=== PATIENT | male | born 1985 | race Caucasian/White ===

== ENCOUNTER 2024-03-20 04:56 | Emergency (ER) | payer SELFPAY ==
[2024-03-20 04:59] VITALS: BP 118/80
[2024-03-20 05:11] VITALS: BMI 28.8
[2024-03-20 05:13] VITALS: BP 135/95
--- NOTE | 2024-03-20 05:30 | ED.GENMED ---
History of Present Illness
General
Chief Complaint: Chest Problem
Time Seen by Provider: 03/20/24 05:30
History of Present Illness
History of Present Illness:
HPI: 24hrs ago, had some chest tightness which was mild and constant (worse w/ sitting/laying). Some mildly swollen ankles yesterday which has resolved. 12hrs ago had some b/l UE discomfort which resolved. 10 hrs ago had more sharp pain. Ongoing
tightness overnight and now associated w/ wheeze/cough. He denies history of hyperlipidemia, denies diabetes, never smoked, has no significant family history, but states he has been told that he has had some elevated blood pressure readings but not
treated medically. He reports no shortness of breath.
EXAM:
GENERAL: Well appearing in no distress
HEENT: Moist oral mucosa
CARDIOVASCULAR: No murmurs, normal heart rate, regular rhythm, mild chest wall tenderness in the inferior left pectoral region, I hear no wheezing and I hear no friction rub
PULMONARY: No respiratory distress, breath sounds are clear and equal
ABDOMEN: Soft with no peritoneal signs, no tenderness
NEUROLOGIC: Excellent strength all extremities, no coordination deficits
PSYCHIATRIC: Appropriate mental status, normal insight and judgement
EXTREMITIES: Nontender, no edema, moves all extremities equally
SKIN: No rash, no lesions
TIME OF INITIAL ENCOUNTER: 5:15 AM
NUMBER AND COMPLEXITY OF PROBLEMS ADDRESSED AT THE ENCOUNTER
� Chronic conditions affecting care: Has had issues with palpitations in the past but otherwise fairly healthy
� Acute Exacerbation and/or Progression of Chronic Illness: This is an acute problem
� Differential Diagnosis includes: Noncardiac chest pain, costochondritis, ACS, viral syndrome
AMOUNT AND/OR COMPLEXITY OF DATA TO BE REVIEWED AND ANALYZED
� I performed an independent evaluation of and my interpretation is:
EKG: Sinus 74, normal axis, no acute ST abnormality
CT:
X-rays:
Laboratory Studies: White count is normal at 6.7, hemoglobin normal, chemistries unremarkable, COVID-negative
Other:
� Review of other/old records: No old records available for review in [facility]
� Clinical information was obtained by an independent historian: None needed
� Prescriptions/Medications Considered but not given:
� Further testing considered but not performed: Considered x-ray however the patient's breath sounds are perfectly clear and there has been no coughing while in the ED.
RISK OF COMPLICATIONS AND/OR MORBIDITY OR MORTALITY OF PATIENT MANAGEMENT
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
� Discussion with other providers:
� Escalation of care including admission/observation vs risk of discharge considered: The patient's EKG is unremarkable. He has no significant cardiovascular risk factors. Troponin negative. Highly doubt ACS given normal
troponin and normal EKG with 24 hours of symptoms. I reassessed patient at 6:14 AM and the patient appears very comfortable. Suspect noncardiac etiology of patient's symptoms.
Phy Exam
Physical Exam
Physical Exam:
See HPI
Course
Orders/Labs/Results
Orders:
Orders
03/20/24 05:02
Electrocardiogram (*1) Urgent
Reason for Study: Shortness of Breath
EKG- Treatment ONCE
03/20/24 05:17
Cardiac Monitoring- Treatment ONCE
EKG- Treatment ONCE
IV Insert/Care/Rem.- Treatment PRN
O2 Therapy [RESP] Urgent
Titrate/Wean O2 to maintain O2 sat greater than (%): 90
Special Instructions: Maintain sats >/=90%
Pulse Ox/spot Check [RESP] Urgent
Quantity: 1
Special Instructions: ON ROOM AIR
03/20/24 05:20
COVID-19 Antigen Urgent
Source: Nasal Swab
Complete Blood Count/With Diff Urgent
Comprehensive Metabolic Panel Urgent
Troponin I Urgent
03/20/24 05:46
Ketorolac [Toradol] 15 mg IV NOW STA
Abnormal Lab Results
03/20/24
05:20
MCH 31.1 H pg
(27.0-31.0)
Abs Immat Gran (auto) 0.1 H 10^3/uL
(0-0.05)
Absolute Monos (auto) 0.7 H 10^3/uL
(0.1-0.6)
Immature Gran % 0.7 H %
(0-0.5)
Monocytes % 9.6 H %
(1.7-9.3)
Glucose 124 H mg/dl
(70-99)
03/20/24 05:20
03/20/24 05:20
Vital Signs
Initial and Last Documented VS:
Initial Vital Signs
Temp Pulse Resp BP Pulse Ox
98.2 F 76 22 118/80 98
03/20/24 04:59 03/20/24 04:59 03/20/24 04:59 03/20/24 04:59 03/20/24 04:59
Last Documented Vital Signs
Temp Pulse Resp BP Pulse Ox
98.2 F 65 13 117/78 99
03/20/24 04:59 03/20/24 06:00 03/20/24 06:00 03/20/24 06:00 03/20/24 05:13
*Critical Care Note
Total Time (30-74mins, 75-104mins- exclusive of procedures): Not Applicable
ED Attending Note
-
Portions of this chart may have been created with voice recognition software.� Occasional wrong word or��sound alike� substitutions may have occurred due to the inherent limitations of voice recognition software.
Discharge Plan
Departure
Patient Disposition: Home (Routine Discharge)
Date of Disposition: 03/20/24
Time of Disposition: 06:11
Patient with high blood pressure during this ER visit?: No
Discharge Problem:
Chest pain
Instructions: Chest Pain DCA Follow Up
Prescriptions:
No Action
No Current Medications
0
Referrals:
NONE,* [Family Provider] -
Marco A Soto MD [Active] - Follow up in 2-3 days
Activity Restrictions/Additional Instructions:
The cause of your chest pain is unclear. We gave you a dose of Toradol which is a medicine similar to Motrin. Please follow-up with your primary care doctor. I recommend 3-4 [id number] ibuprofen (Motrin) every 8 hours with food for a few
days. Return here if worse. I also recommend that you follow-up with a pony rougher such as Dr. Soto. I feel that is okay for you to do light work but I recommend against any strenuous activity. Your EKG and cardiac blood work are both normal.
Interventions
Interventions:
*Risk Screen - Suicide Last Done: 03/20/24 04:59
*General Assessment Last Done: 03/20/24 05:10
*Neglect/Abuse Screening Last Done: 03/20/24 04:59
ED- Fall Risk Assessment Last Done: 03/20/24 05:25
*ED COVID-19 Vaccine History Last Done: 03/20/24 05:10
ED- Cardiac Assessment Last Done: 03/20/24 05:25
ED- Pulmonary Assessment Last Done: 03/20/24 05:25
Discharge Date and Time
Print Language: GHANAIAN
[2024-03-20 05:48] LABS: COVID-19 Antigen Negative (Negative)
[2024-03-20 05:50] LABS: ALT (SGPT) 25 U/L (0-50); AST (SGOT) 23 U/L (17-59); Albumin 4.4 g/dl (3.5-5.0); Alkaline Phosphatase 64 U/L (38-126); Blood Urea Nitrogen 16 mg/dl (9-20); Calcium 9.5 mg/dl (8.4-10.2); Carbon Dioxide 29 mmol/L (22-30); Chloride 102 mmol/L (98-107); Estimated Creatinine Clearance 96 ml/min; Glucose 124 mg/dl (70-99); Potassium 4.6 mmol/L (3.5-5.1); Sodium 136 mmol/L (135-145); Total Bilirubin 0.5 mg/dl (0.2-1.3); eGFR > 60.00
[2024-03-20] MEDS: TORADOL 15 MG IV (05:50)
[2024-03-20 05:54] LABS: % Basophils 0.9 % (0-2); % Eosinophils 3.3 % (0-6); % Immature Granulocytes 0.7 % (0-0.5); % Lymphocytes 27.3 % (20.5-51.1); % Monocytes 9.6 % (1.7-9.3); % Neutrophils 58.2 % (42.2-75.2); Absolute Basophils 0.1 10^3/uL (0-0.2); Absolute Eosinophils 0.2 10^3/uL (0-0.7); Absolute Immature Granulocytes 0.1 10^3/uL (0-0.05); Absolute Lymphocytes 1.8 10^3/uL (1.2-3.4); Absolute Monocytes 0.7 10^3/uL (0.1-0.6); Absolute Neutrophils 3.9 10^3/uL (1.4-6.5); Hematocrit 42.6 % (39.0-52.0); Hemoglobin 15.6 g/dL (13.0-18.0); Mean Corp Hgb Conc. 36.6 g/dL (33.0-37.0); Mean Corpuscular Hgb 31.1 pg (27.0-31.0); Mean Platelet Volume 9.6 fL (7.4-10.4); Nucleated Red Blood Cells % 0 % (-); Platelet Count 285 10^3/uL (130-400); Red Blood Cell Count 5.01 10^6/uL (4.70-6.10); Red Cell Dist. Width 12.1 % (11.5-14.5); White Blood Cell Count 6.7 10^3/uL (4.8-10.8)
[2024-03-20 06:00] VITALS: BP 117/78
[2024-03-20 06:01] LABS: Troponin I < 0.012 ng/ml
== END 2024-03-20 06:25 | disposition home or self-care (01) ==
LOC: EMR 04:56
PROVIDERS: EMERGENCY PHYSICIAN Emergency Medicine
DX: R07.89 Other chest pain (principal); R06.2 Wheezing; R05.9 Cough, unspecified; Z11.52 Encounter for screening for COVID-19
CPT/HCPCS: 99284; 96374; 94760; 80053; 84484; 85025; 87811; 93005

== ENCOUNTER 2024-03-23 14:40 | Emergency (ER) | payer SELFPAY ==
[2024-03-23 14:41] VITALS: BP 103/76
[2024-03-23 14:59] VITALS: BP 123/79
[2024-03-23 15:25] LABS: ALT (SGPT) 38 U/L (0-50); AST (SGOT) 30 U/L (17-59); Albumin 4.6 g/dl (3.5-5.0); Alkaline Phosphatase 68 U/L (38-126); Blood Urea Nitrogen 17 mg/dl (9-20); Calcium 9.2 mg/dl (8.4-10.2); Carbon Dioxide 26 mmol/L (22-30); Chloride 101 mmol/L (98-107); Glucose 96 mg/dl (70-99); Potassium 4.4 mmol/L (3.5-5.1); Sodium 136 mmol/L (135-145); Total Bilirubin 0.5 mg/dl (0.2-1.3); Total Protein 7.2 g/dl (6.3-8.2); eGFR > 60.00
[2024-03-23 15:36] LABS: Troponin I < 0.012 ng/ml
--- NOTE | 2024-03-23 15:40 | ED.GENMED ---
History of Present Illness
General
Chief Complaint: Chest Pain
Time Seen by Provider: 03/23/24 15:08
History of Present Illness
History of Present Illness:
HPI: Patient presents with palpitations. He describes as a pounding sensation in the last night. It improved/resolved when he stood up and then recurred again when he lay down. He currently does not have any significant symptoms. He had some
vague chest stabbing sensation earlier.
EXAM:
GENERAL: Well appearing in no distress
HEENT: Moist oral mucosa
CARDIOVASCULAR: No murmurs, normal heart rate, regular rhythm, No chest wall tenderness
PULMONARY: No respiratory distress, breath sounds are clear and equal
ABDOMEN: Soft with no peritoneal signs, no tenderness
NEUROLOGIC: Excellent strength all extremities, no coordination deficits
PSYCHIATRIC: Appropriate mental status, normal insight and judgement
EXTREMITIES: Nontender, no edema, moves all extremities equally
SKIN: No rash, no lesions
TIME OF INITIAL ENCOUNTER: 3:30 PM
NUMBER AND COMPLEXITY OF PROBLEMS ADDRESSED AT THE ENCOUNTER
� Chronic conditions affecting care: Denies any significant past medical history but is had palpitations and COVID in the past
� Acute Exacerbation and/or Progression of Chronic Illness: This is an acute problem
� Differential Diagnosis includes: SVT, A-fib, other dysrhythmia, ACS unlike, anxiety
AMOUNT AND/OR COMPLEXITY OF DATA TO BE REVIEWED AND ANALYZED
� I performed an independent evaluation of and my interpretation is:
EKG: Sinus 81, normal axis, no acute ST abnormality, normal intervals
CT:
X-rays:
Laboratory Studies: Chemistries unremarkable, troponin negative, magnesium normal, thyroid testing normal
Other:
� Review of other/old records: I reviewed blood work from a few days ago which showed a normal troponin
� Clinical information was obtained by an independent historian: I spoke to family member at bedside
� Prescriptions/Medications Considered but not given:
� Further testing considered but not performed:
RISK OF COMPLICATIONS AND/OR MORBIDITY OR MORTALITY OF PATIENT MANAGEMENT
� Social determinants of health affecting care: Lives at home
� Discussion with other providers: Discussed case with Dr. Soto who indicates the patient does not have an appointment on Tuesday and he will need to call for an appointment
� Escalation of care including admission/observation vs risk of discharge considered: The patient has a normal ED workup again. Other than 1 PVC noted, he has no abnormality seen. Will start low-dose beta-chiara.
Phy Exam
Physical Exam
Physical Exam:
See HPI
Scores
Heart Score for Chest Pain Patients
STEMI patient?: Not applicable
Course
Orders/Labs/Results
Orders:
Orders
03/23/24 14:44
Electrocardiogram (*1) Urgent
Reason for Study: Chest Pain
EKG- Treatment ONCE
03/23/24 15:05
Cardiac Monitoring- Treatment ONCE
IV Insert/Care/Rem.- Treatment PRN
O2 Therapy [RESP] Urgent
Titrate/Wean O2 to maintain O2 sat greater than (%): 90
Special Instructions: Maintain sats >/=90%
Pulse Ox/spot Check [RESP] Urgent
Quantity: 1
Special Instructions: ON ROOM AIR
03/23/24 15:06
Complete Blood Count/With Diff Urgent
Comprehensive Metabolic Panel Urgent
Magnesium Urgent
TSH Reflex To Free T4 Urgent
Comment: MAG & TSH REFLEX ADDED ON BY FLOOR 3:50PM 03-23-24
Troponin I Urgent
03/23/24 15:50
Add On- LAB Urgent
Tests Added?: magnesium, TSH reflex fT4
03/23/24 16:33
Metoprolol Xl [Toprol Xl] 25 mg PO NOW STA
Abnormal Lab Results
03/23/24
15:06
MCH 31.6 H pg
(27.0-31.0)
MCHC 37.4 H g/dL
(33.0-37.0)
Abs Immat Gran (auto) 0.1 H 10^3/uL
(0-0.05)
Absolute Monos (auto) 0.8 H 10^3/uL
(0.1-0.6)
Immature Gran % 1.4 H %
(0-0.5)
03/23/24 15:06
03/23/24 15:06
Vital Signs
Initial and Last Documented VS:
Initial Vital Signs
Temp Pulse Resp BP Pulse Ox
97.6 F 91 18 103/76 97
03/23/24 14:41 03/23/24 14:41 03/23/24 14:41 03/23/24 14:41 03/23/24 14:41
Last Documented Vital Signs
Temp Pulse Resp BP Pulse Ox
97.6 F 90 16 116/79 98
03/23/24 14:41 03/23/24 17:12 03/23/24 17:12 03/23/24 17:12 03/23/24 17:12
*Critical Care Note
Total Time (30-74mins, 75-104mins- exclusive of procedures): Not Applicable
ED Attending Note
-
Portions of this chart may have been created with voice recognition software.� Occasional wrong word or��sound alike� substitutions may have occurred due to the inherent limitations of voice recognition software.
Discharge Plan
Departure
Patient Disposition: Home (Routine Discharge)
Date of Disposition: 03/23/24
Time of Disposition: 16:30
Patient with high blood pressure during this ER visit?: Yes
Discharge Problem:
Palpitations
Instructions: Palpitations, Chest Pain DCA Follow Up
Prescriptions:
New
metoprolol succinate [Toprol XL] 25 mg tablet extended release 24 hr
25 mg PO DAILY Qty: 30 0RF
Referrals:
Marco A Soto MD [Active] - Follow up in 2-3 days
UNKNOWN - PT DOES,NOT KNOW [Unknown Provider] -
Activity Restrictions/Additional Instructions:
The cause of your symptoms is unclear. Electrolytes are normal. Cardiac blood work called a troponin is also normal. EKG is unchanged. I spoke to the cardiology group. Dr. Soto indicates that you do NOT have an appointment upcoming. Please
call their office for follow-up.
Interventions
Interventions:
*Risk Screen - Suicide Last Done: 03/23/24 14:41
*General Assessment Last Done: 03/23/24 14:41
*Neglect/Abuse Screening Last Done: 03/23/24 14:41
ED- Fall Risk Assessment Last Done: 03/23/24 15:32
*ED COVID-19 Vaccine History Last Done: 03/23/24 15:32
*Nursing Disposition Last Done: 03/23/24 17:13
ED- Cardiac Assessment Last Done: 03/23/24 15:32
Discharge Date and Time
Discharge Date/Time: 03/23/24 17:13
Print Language: KAZAKH
[2024-03-23 16:04] LABS: Magnesium 2.1 mg/dl (1.6-2.3)
[2024-03-23 16:15] VITALS: BP 123/79
[2024-03-23 16:20] LABS: % Basophils 0.9 % (0-2); % Eosinophils 2.1 % (0-6); % Immature Granulocytes 1.4 % (0-0.5); % Monocytes 8.4 % (1.7-9.3); % Neutrophils 63.2 % (42.2-75.2); Absolute Basophils 0.1 10^3/uL (0-0.2); Absolute Eosinophils 0.2 10^3/uL (0-0.7); Absolute Immature Granulocytes 0.1 10^3/uL (0-0.05); Absolute Lymphocytes 2.2 10^3/uL (1.2-3.4); Absolute Monocytes 0.8 10^3/uL (0.1-0.6); Absolute Neutrophils 5.8 10^3/uL (1.4-6.5); Hematocrit 42.5 % (39.0-52.0); Hemoglobin 15.9 g/dL (13.0-18.0); Mean Corp Hgb Conc. 37.4 g/dL (33.0-37.0); Mean Corpuscular Hgb 31.6 pg (27.0-31.0); Mean Corpuscular Volume 84.5 fL (80.0-94.0); Nucleated Red Blood Cells % 0 % (-); Platelet Count 282 10^3/uL (130-400); Red Blood Cell Count 5.03 10^6/uL (4.70-6.10); Red Cell Dist. Width 12.2 % (11.5-14.5); White Blood Cell Count 9.1 10^3/uL (4.8-10.8)
[2024-03-23 16:45] LABS: TSH Reflex To Free T4 0.54 uIU/ml (0.47-4.68)
[2024-03-23] MEDS: TOPROL XL 25 MG PO (17:01)
[2024-03-23 17:03] VITALS: BP 116/79
[2024-03-23 17:12] VITALS: BP 116/79
== END 2024-03-23 17:13 | disposition home or self-care (01) ==
LOC: EMR 14:40
PROVIDERS: Emergency Medicine; EMERGENCY PHYSICIAN Emergency Medicine
DX: R00.2 Palpitations (principal); R07.89 Other chest pain; R03.0 Elevated blood-pressure reading, without diagnosis of hypertension
CPT/HCPCS: 99283; 80053; 83735; 84443; 84484; 85025; 93005

== ENCOUNTER 2024-03-27 07:19 | Emergency (ER) | payer SELFPAY ==
[2024-03-27] VITALS (8 sets, daily range): BP systolic 105–120; BP diastolic 64–80; PULSE 60–66
--- NOTE | 2024-03-27 08:10 | ED.GENMED ---
History of Present Illness
<Salud Martinez MD, Resident - Last Filed: 03/30/24 06:39>
General
Chief Complaint: Fainting/Passed Out
Source: patient
Time Seen by Provider: 03/27/24 07:29
History of Present Illness
History of Present Illness:
39-year-old male, Mr. Wily Aggarwal presented to the ER reporting palpitations, chest tightness and a syncopal episode. Patient has been having ongoing palpitations intermittently for the past 1 week, notices them often in the lying down
position. They are accompanied by chest tightness, all day long yesterday, radiates to the right neck. Patient reports new onset of blurry vision since morning today, and also had a syncopal episode during work where he passed out for 5 to 10
seconds. Patient did not fall, did not hit his head, he was caught by his colleagues when he had syncope. Patient was started on metoprolol during his prior visit, he thinks that metoprolol has worsened his palpitations and chest tightness. He
wanted to follow-up with a print shop assistant during his prior visit but could not schedule an early appointment. Patient denies headaches, fever/chills, cough, abdominal pain, bladder/bowel issues, extremity weakness , acute onset speech issues.
Past History
<Salud Martinez MD, Resident - Last Filed: 03/30/24 06:39>
Social History
Tobacco: Non-smoker
Alcohol: Occasional
Drug: None
Employment: Employed
Review of Systems
<Salud Martinez MD, Resident - Last Filed: 03/30/24 06:39>
Review of Systems
All Other Systems: ROS reviewed and negative except as documented in HPI and ROS
Phy Exam
<Salud Martinez MD, Resident - Last Filed: 03/30/24 06:39>
Physical Exam
Physical Exam:
GEN: Well appearing, NAD, WDWN
Eyes: PERRLA, EOMs intact, no scleral icterus
HENT: NCAT, oral mucosa moist, no JVD, no cervical adenopathy.
Lungs: CTAB, no wheezes, rales, rhonchi, normal chest wall excursion
Cardiac: RRR, S1-S2+, no peripheral edema. Radial pulses 2+ bilat
Abdomen: S, NT, ND, NABS, no masses or hepatosplenomegaly
Neuro: AO x 3, no focal deficits to BUE/BLE, normal sensation throughout
Skin: No rashes, petechiae. Normal color, no pallor or jaundice.
Psych: Calm, cooperative, proper hygiene
Course
<Salud Martinez MD, Resident - Last Filed: 03/30/24 06:39>
Orders/Labs/Results
Orders:
Orders
03/27/24
Electrocardiogram (*1) Stat
Reason for Study: Chest Pain
Comment: DONE
03/27/24 08:22
Orthostatic VS- Treatment ONCE
CR Chest - 2 Views Urgent
Comment:
Reason For Exam: chest pain
03/27/24 08:53
Basic Metabolic Panel Urgent
Complete Blood Count/No Diff Urgent
D-Dimer Urgent
Magnesium Urgent
Troponin I Urgent
Abnormal Lab Results
03/27/24
08:53
Glucose 116 H mg/dl
(70-99)
03/27/24 08:53
03/27/24 08:53
Vital Signs
Initial and Last Documented VS:
Initial Vital Signs
Temp Pulse Resp BP Pulse Ox
98.0 F 73 20 110/80 100
03/27/24 07:23 03/27/24 07:23 03/27/24 07:23 03/27/24 07:23 03/27/24 07:23
Last Documented Vital Signs
Temp Pulse Resp BP Pulse Ox
98.0 F 67 24 113/70 100
03/27/24 07:23 03/27/24 10:15 03/27/24 10:15 03/27/24 10:00 03/27/24 10:15
<Harinder Luna MD - Last Filed: 03/30/24 06:00>
Orders/Labs/Results
Orders:
Orders
03/27/24
Electrocardiogram (*1) Stat
Reason for Study: Chest Pain
Comment: DONE
03/27/24 08:22
Orthostatic VS- Treatment ONCE
CR Chest - 2 Views Urgent
Comment:
Reason For Exam: chest pain
03/27/24 08:53
Basic Metabolic Panel Urgent
Complete Blood Count/No Diff Urgent
D-Dimer Urgent
Magnesium Urgent
Troponin I Urgent
Abnormal Lab Results
03/27/24
08:53
Glucose 116 H mg/dl
(70-99)
03/27/24 08:53
03/27/24 08:53
Vital Signs
Initial and Last Documented VS:
Initial Vital Signs
Temp Pulse Resp BP Pulse Ox
98.0 F 73 20 110/80 100
03/27/24 07:23 03/27/24 07:23 03/27/24 07:23 03/27/24 07:23 03/27/24 07:23
Last Documented Vital Signs
Temp Pulse Resp BP Pulse Ox
98.0 F 67 24 113/70 100
03/27/24 07:23 03/27/24 10:15 03/27/24 10:15 03/27/24 10:00 03/27/24 10:15
<Salud Martinez MD, Resident - Last Filed: 03/30/24 06:39>
MDM/Problems Addressed
Differential Diagnosis Includes:
ACS versus arrhythmias versus PE versus pneumonia versus orthostatic hypotension.
MDM/Problems Addressed:
CBC, CMP unremarkable except for BG�116
Chest x-ray�no acute abnormalities.
EKG�sinus rhythm
Patient is clinically stable to be discharged.
Advised follow-up with print shop assistant�DCA
Advised follow-up with primary care physician within a week.
<Salud Martinez MD, Resident - Last Filed: 03/30/24 06:39>
*Critical Care Note
Total Time (30-74mins, 75-104mins- exclusive of procedures): Not Applicable
ED Attending Note
<Salud Martinez MD, Resident - Last Filed: 03/30/24 06:39>
-
Portions of this chart may have been created with voice recognition software.� Occasional wrong word or��sound alike� substitutions may have occurred due to the inherent limitations of voice recognition software.
<Harinder Luna MD - Last Filed: 03/30/24 06:00>
ED Attending Note
Patient seen and examined by attending physician: Yes
ED Attending Note:
Patient presents ED secondary to recurrent chest palpitations, chest tightness, along with brief episode of syncope while he was at work this morning. Syncopal episode occurred while he was standing up. Patient did not fall, as his coworkers were
able to catch him and laid him to the ground. Patient states the syncopal episode lasted less than few seconds. Denies shortness of breath. Denies nausea vomiting. Denies diaphoresis or dizziness. Patient has had multiple similar episodes in
the recent past, requiring multiple evaluation ED. Patient has attempted to call cardiology for an outpatient consultation, but does not have an appointment until May. At the time of evaluation ED, patient is without any complaints however.
Denies recent travel or surgery. Denies leg pain or swelling. Denies back pain. Denies family history of heart disease.
Physical Exam
General: no apparent distress, not acutely ill. afebrile
Head: nc/at. eomi
Neck: supple. no meningeal signs.
Heart: s1/s2 regular rate and rhythm, no murmur. equal radial pulses.
Lungs: no acute respiratory distress. clear bilaterally
Abdomen: normal bowel sounds. not tender.
Neuro: alert and oriented. no focal neurological deficits
Skin: no rash
Psychiatric: well kept. interactive and cooperative
Extremities: no edema. no calf tenderness.
Patient with an unremarkable workup in ED, including blood work, EKG, and chest x-ray. Patient otherwise remains afebrile and hemodynamically stable. Patient was referred to cardiology for an outpatient consultation via the low risk chest pain
line. Advised to return to ED with worsening symptoms.
Discharge Plan
Departure
Patient Disposition: Home (Routine Discharge)
Date of Disposition: 03/27/24
Time of Disposition: 10:08
Patient with high blood pressure during this ER visit?: No
Condition: Good
Discharge Problem:
Palpitations, Syncope
Instructions: Chest Pain DCA Follow Up
Prescriptions:
No Action
metoprolol succinate [Toprol XL] 25 mg tablet extended release 24 hr
25 mg PO DAILY Qty: 30 0RF
Referrals:
NONE,* [Family Provider] -
Activity Restrictions/Additional Instructions:
Continue metoprolol
Advised adequate hydration.
Advised follow-up with cardiology�DCA
Advised to follow-up with primary care within a week.
Interventions
Interventions:
*Risk Screen - Suicide Last Done: 03/27/24 07:39
*Neglect/Abuse Screening Last Done: 03/27/24 07:39
*ED COVID-19 Vaccine History Last Done: 03/27/24 07:41
*Nursing Disposition Last Done: 03/27/24 10:32
ED- Cardiac Assessment Last Done: 03/27/24 07:39
ED- Neurological Assessment Last Done: 03/27/24 07:39
Discharge Date and Time
Discharge Date/Time: 03/27/24 10:32
Print Language: BRAZILIAN
[2024-03-27 09:05] LABS: Hematocrit 43.1 % (39.0-52.0); Hemoglobin 15.6 g/dL (13.0-18.0); Mean Corp Hgb Conc. 36.2 g/dL (33.0-37.0); Mean Corpuscular Hgb 30.9 pg (27.0-31.0); Mean Corpuscular Volume 85.3 fL (80.0-94.0); Mean Platelet Volume 9.2 fL (7.4-10.4); Platelet Count 243 10^3/uL (130-400); Red Blood Cell Count 5.05 10^6/uL (4.70-6.10); Red Cell Dist. Width 12.4 % (11.5-14.5); White Blood Cell Count 6.3 10^3/uL (4.8-10.8)
[2024-03-27 09:15] LABS: Blood Urea Nitrogen 14 mg/dl (9-20); Calcium 9.1 mg/dl (8.4-10.2); Carbon Dioxide 25 mmol/L (22-30); Chloride 104 mmol/L (98-107); Glucose 116 mg/dl (70-99); Magnesium 2.1 mg/dl (1.6-2.3); Sodium 136 mmol/L (135-145); eGFR > 60.00
[2024-03-27 09:29] LABS: Potassium 4.3 mmol/L (3.5-5.1)
[2024-03-27 09:43] LABS: Troponin I < 0.012 ng/ml
[2024-03-27 09:49] LABS: D-Dimer < 0.27 ug/mlFEU (0.00-0.50)
== END 2024-03-27 10:32 | disposition home or self-care (01) ==
LOC: EMR 07:19
PROVIDERS: EMERGENCY PHYSICIAN Emergency Medicine
DX: R55 Syncope and collapse (principal); R00.2 Palpitations; R07.89 Other chest pain; H53.8 Other visual disturbances; Y93.89 Activity, other specified; Y92.89 Other specified places as the place of occurrence of the external cause; Y99.0 Civilian activity done for income or pay
CPT/HCPCS: 99284; 71046; 80048; 83735; 84484; 85027; 85379; 93005

== ENCOUNTER → 2025-03-29 14:27 | Outpatient (REF) | payer OTHER, SELFPAY | LOC: RAD 14:27 | PROVIDERS: ATTENDING PHYSICIAN Surgery Vascular Surgery | DX: S25.09XA Other specified injury of thoracic aorta, initial encounter (principal) | CPT/HCPCS: 71275; 74174; Q9967 ==